=== PATIENT | female | born 1925 | race Caucasian/White ===

== ENCOUNTER → 2016-11-17 | Outpatient (CLI) | payer MEDICARE, MEDICAID ==
[~2016-11-17] MED LIST: ACEPHEN325 MG; DULCOLAX10 MG R; DUONEB; ELIQUIS2.5 MG PO; GLUCOSE4 GM PO; HUMIBID LA (MU600 MG PO; HYDROCERIN)(MI236 ML; LAMICTAL100 MG PO; LANTUS (IN100 UNIT/M SUB-Q; LASIX20 MG PO; LEVOTHROID (SY25 MCG PO; METROCREAM45 GM; MILK OF MA400 MG/5 M PO; NOVOLOG100 UNIT/M SUB-Q; OXYGEN M-15 INH; RISPERDAL1 MG PO; SALINE NASAL SP88 ML; SURFAK240 MG PO; TENORMIN50 MG PO; THERA-VITE W/ B1 TAB PO; TRIAMCINOLONE454 GM TOP; TYLENOL325 MG PO; ULTRAM50 MG PO; ZANTAC (NON-FO150 MG PO; ZOVIRAX400 MG PO; ZOVIRAX800 MG PO
[2016-11-17 17:19] LABS: BILIRUBIN URINE NEGATIVE (NEGATIVE); BLOOD URINE 10 /UL (NEGATIVE); COLOR URINE YELLOW (YELLOW); GLUCOSE URINE NEGATIVE (NEGATIVE); KETONE URINE NEGATIVE (NEGATIVE); LEUKOCYTES URINE 500 /UL (NEGATIVE); NITRITE URINE POSITIVE (NEGATIVE); PROTEIN URINE NEGATIVE (NEGATIVE); SPEC GRAVITY URINE 1.015 (1.003-1.035); TURBIDITY URINE 3+ (CLEAR); UROBILINOGEN URINE NORMAL (NORMAL)
[2016-11-17 17:32] LABS: RBC URINE NEGATIVE #/HPF (NEGATIVE); WBC URINE FULL FIELD #/HPF (NEGATIVE)
[2016-11-17 17:33] LABS: BACTERIA URINE MANY (NEGATIVE); MUCUS URINE 2+ (NEGATIVE)
== END | disposition disaster alternative care site (69) ==
LOC: LJOHN2 16:42
PROVIDERS: Internal Medicine Cardiovascular Disease
DX: N17.9 Acute kidney failure, unspecified (principal); N18.3 Chronic kidney disease, stage 3 (moderate)